=== PATIENT | female | born 1990 | race Hispanic/Latino ===

== ENCOUNTER 2019-06-27 14:15 | Emergency (ER) | payer OTHER | END 2019-06-27 15:37 | disposition home or self-care (01) | LOC: EDH 14:15 | DX: K52.9 Noninfective gastroenteritis and colitis, unspecified (principal); Z88.1 Allergy status to other antibiotic agents | CPT/HCPCS: 99281 ==

== ENCOUNTER 2022-03-08 01:28 | Emergency (ER) | payer OTHER ==
[~2022-03-08] VITALS: Ht 157.5 cm; Wt 66.2 kg
[2022-03-08] MEDS ORDERED: ACETAMINOPHEN 500 MG TABLET ONE (01:48)
[2022-03-08 02:01] LABS: APPEARANCE,URINE Clear (CLEAR); BILIRUBIN,URINE Negative (NEGATIVE); COLOR,URINE Yellow (YELLOW); GLUCOSE, URINE (UA) Negative (NEGATIVE); KETONES,URINE Negative (NEGATIVE); LEUKOCYTE ESTERASE ,URINE Trace (NEGATIVE); NITRATE,URINE Negative (NEGATIVE); OCCULT BLOOD,URINE Trace (NEGATIVE); PH,URINE 6.5 (5.0-8.0); PROTEIN,URINE Negative (NEGATIVE)
[2022-03-08 02:12] LABS: BACTERIA,URINE Moderate /HPF (None Seen); RBC,URINE None Seen /HPF (0-1); WBC,URINE 0-1 /HPF (0-1)
[2022-03-08 02:13] LABS: HCG,QUAL RESULT NEGATIVE (NEGATIVE)
[2022-03-08] MEDS ORDERED: IBUPROFEN 600 MG TABLET ONE (02:52)
[2022-03-08] MEDS ORDERED: IBUPROFEN 600 MG TABLET PO ONE (03:00)
[2022-03-08 03:31] VITALS: BP 104/59
== END 2022-03-08 03:32 | disposition home or self-care (01) ==
LOC: EDH 01:28
DX: U07.1 COVID-19 (principal); Z88.8 Allergy status to other drugs, medicaments and biological substances
CPT/HCPCS: 81001; 81025; 87088; 87635; 87804 ×2; 87880; 99285; C9803